=== PATIENT | female | born 1970 | race Caucasian/White ===

== ENCOUNTER → 2016-10-22 | Outpatient (CLI) | payer OTHER ==
[~2016-10-22] MED LIST: ALBUTEROL SULFAT3 M3 IH; ALBUTEROL0.09 MG/A1 IH; AMBIEN 5MG TABLE5 MG PO; AMITRIPTYLINE H10 M1 PO; ASPIRIN E.C. 8181 MG PO; AZOR 10 MG-20 M1 TAB PO; AZOR 10 MG-40 M1 TAB PO; BCP TD; BENICAR HCT 251 TAB PO; BENICAR40 MG PO; BYETTA 10M600 MCG/SY SC; BYETTA 5MC300 MCG/SY SC; BYSTOLIC10 MG PO; BYSTOLIC5 MG PO; Birth Control Pill PO; CATAPRES0.2 MG PO; CEPHALEXIN500 M1 PO; CLONIDINE0.1 MG PO; COREG 25MG25 MG/TAB PO; CYMBALTA 60MG60 MG PO; DESYREL 50MG50 MG PO; DOXAZOSIN4 MG PO; EC NAPROSYN500 MG PO; FIORICET 325 MG1 TA1 PO; FLAGYL 250250 MG/TAB PO; FLEXERIL 1010 MG/TAB PO; FLEXERIL10 MG PO; FLONASE NASAL S16 GM NS; FORTAMET500 MG PO; GABAPENTIN600 MG PO; GLUCOPHAGE PO; GLUCOPHAGE500 MG PO; GLUCOPHAGE500 MG/TAB PO; HCTZ PO; IBUPROFEN; INDERAL 20MG20 MG PO; INDERAL PO; LIPITOR 10MG10 MG PO; LIPITOR 40MG TA40 MG PO; LISINOPRIL PO; LISINOPRIL/HCTZ1 TA2 PO; LISINOPRIL1 POW; LORTAB 5/500 501 TAB PO; LORTAB 7.5/5001 TAB PO; MEPERIDINE HCL50 MG PO; METFORMIN500 MG PO; MICARDIS80 MG PO; MINOXIDIL2.5 MG PO; MOBIC15 MG PO; MOTRIN 800800 MG/TAB PO; MOTRIN800 MG PO; NAPROSYN500 MG PO; NAPROXEN500 MG PO; NORCO 325 MG-51 TAB PO; NORCO 325 MG-7.1 TAB PO; NORVASC 10MG10 MG PO; NORVASC 5MG5 MG/TAB PO; OXYCODONE15 MG PO; OXYCONTIN30 MG PO; PEPCID 20MG TAB20 MG PO; PERCOCET 325 MG1 TA2 PO; PERCOCET 5/321 UDTAB PO; PERCOCET 500 MG1 TAB PO; PHENERGAN 25 TA25 MG PO; PHENERGAN25 MG RC; PRAVASTATIN40 MG PO; PREDNISONE20 MG PO; PRILOSEC20 M1 PO; PRINZIDE 25 MG-1 TAB PO; PROTONIX 40MG T40 MG PO; PROVENTIL0.09 MG/A1 IH; ROXICODONE30 MG PO; SEPTRA DS 8001 TAB PO; SOMA 350MG350 MG/TAB PO; SOMA250 MG PO; SOMA350 MG PO; TENEX1 MG PO; TENEX2 MG PO; TRAMADOL; TRIBENZOR 10 MG1 TA1 PO; TYLENOL 325MG325 MG PO; ULTRAM; ULTRAM 50MG TAB50 MG PO; ULTRAM ER300 MG PO; ULTRAM50 MG PO; VALIUM5 MG PO; VICODIN 5/5001 UDTAB PO; XOPENEX 3 ML3 M1 IH; ZANAFLEX2 MG PO; ZESTORETIC 12.51 TA1 PO; ZITHROMAX Z PA250 MG PO; ZOFRAN4 MG PO; [UNRECOGNIZED DRUG - OTHER]; propanolol
== END ==
LOC: MC.RAD 10:34
DX: Z12.31 Encounter for screening mammogram for malignant neoplasm of breast (principal)

== ENCOUNTER 2018-01-10 13:09 | Emergency (ER) | payer OTHER ==
[~2018-01-10] VITALS: Ht 165.1 cm; Wt 97.3 kg
[2018-01-10 13:18] VITALS: BP 124/87; TEMP 98.2
[2018-01-10 14:24] VITALS: PULSE 90
[2018-01-11] MEDS ORDERED: PERCOCET 325 MG1 TA3 PO (07:00)
[2018-01-11] MEDS ORDERED: SOMA 350MG350 MG/TAB PO (07:02)
[2018-01-11] MEDS ORDERED: TRULICITY0.75 MG/0. SQ (07:02)
== END 2018-01-10 14:37 | disposition home or self-care (01) ==
LOC: COL.ER 13:09
DX: G89.29 Other chronic pain (principal); M54.5 Low back pain; M19.90 Unspecified osteoarthritis, unspecified site; Z90.89 Acquired absence of other organs; Z90.49 Acquired absence of other specified parts of digestive tract; Z98.890 Other specified postprocedural states; Z79.84 Long term (current) use of oral hypoglycemic drugs; X50.0XXA Overexertion from strenuous movement or load, initial encounter
CPT/HCPCS: J1170; J1885; J2550

== ENCOUNTER 2018-01-11 06:48 | Emergency (ER) | payer OTHER ==
[~2018-01-11] VITALS: Ht 165.1 cm; Wt 97.3 kg
[2018-01-11 06:50] VITALS: BP 125/90; TEMP 97.4
[2018-01-11] MEDS ORDERED: PERCOCET 325 MG1 TA3 PO (07:00)
[2018-01-11] MEDS ORDERED: TRULICITY0.75 MG/0. SQ (07:02)
[2018-01-11] MEDS ORDERED: SOMA 350MG350 MG/TAB PO (07:02)
[2018-01-11 07:36] VITALS: PULSE 102
== END 2018-01-11 07:41 | disposition home or self-care (01) ==
LOC: COL.ER 06:48
DX: G89.29 Other chronic pain (principal); M54.5 Low back pain; I10 Essential (primary) hypertension; X50.0XXA Overexertion from strenuous movement or load, initial encounter; Y92.89 Other specified places as the place of occurrence of the external cause
CPT/HCPCS: J1170

== ENCOUNTER 2018-02-03 20:27 | Emergency (ER) | payer OTHER ==
[~2018-02-03] VITALS: Ht 165.1 cm; Wt 97.3 kg
[~2018-02-03 20:27] MED LIST changes: +PERCOCET 325 MG1 TA3 PO; +TRULICITY0.75 MG/0. SQ
[2018-02-03 20:41] VITALS: BP 125/81; TEMP 98.7
[2018-02-03] MEDS ORDERED: HYSINGLA40 (22:36)
[2018-02-03] MEDS ORDERED: LOPRESSOR 550 MG/TAB PO (22:36)
[2018-02-03] MEDS ORDERED: ULTRAM 50MG TAB50 MG PO (22:37)
[2018-02-03] MEDS ORDERED: CYMBALTA 30MG30 MG (22:39)
[2018-02-03] MEDS ORDERED: FOLIC ACID 11 MG/TA1 PO (22:41)
[2018-02-03] MEDS ORDERED: FERRO-TIME325 MG PO (22:42)
[2018-02-03 23:15] VITALS: PULSE 88
== END 2018-02-03 23:15 | disposition home or self-care (01) ==
LOC: COL.ER 20:27
DX: G89.29 Other chronic pain (principal); M54.5 Low back pain
CPT/HCPCS: J1170; J1885

== ENCOUNTER 2018-02-04 23:49 | Emergency (ER) | payer OTHER ==
[~2018-02-04] VITALS: Ht 165.1 cm; Wt 97.3 kg
[~2018-02-04 23:49] MED LIST changes: +CYMBALTA 30MG30 MG; +FERRO-TIME325 MG PO; +FOLIC ACID 11 MG/TA1 PO; +HYSINGLA40; +LOPRESSOR 550 MG/TAB PO
[2018-02-05 00:08] VITALS: BP 122/83; TEMP 98.2
[2018-02-05 01:38] VITALS: PULSE 82
== END 2018-02-05 01:38 | disposition home or self-care (01) ==
LOC: COL.ER 23:49
DX: M54.5 Low back pain (principal); E11.9 Type 2 diabetes mellitus without complications; I10 Essential (primary) hypertension; G89.29 Other chronic pain; Z90.49 Acquired absence of other specified parts of digestive tract; Z90.710 Acquired absence of both cervix and uterus; Z88.1 Allergy status to other antibiotic agents; Z88.8 Allergy status to other drugs, medicaments and biological substances
CPT/HCPCS: J1885

== ENCOUNTER 2018-02-05 19:49 | Emergency (ER) | payer OTHER ==
[~2018-02-05] VITALS: Ht 165.1 cm; Wt 97.3 kg
[2018-02-05 19:57] VITALS: BP 143/77; PULSE 94; TEMP 98.1
== END 2018-02-05 21:50 | disposition left against medical advice (07) ==
LOC: COL.ER 19:49
DX: M54.5 Low back pain (principal)

== ENCOUNTER 2018-02-23 17:11 | Inpatient (IN) | payer OTHER ==
[2018-02-23] VITALS (22 sets, daily range): BP systolic 127; BP diastolic 63; PULSE 101; TEMP 98.7; O2SAT 93–98
[~2018-02-23] VITALS: Ht 165.1 cm; Wt 100.6 kg
[~2018-02-23 17:11] MED LIST changes: -CYMBALTA 30MG30 MG; +CYMBALTA 30MG30 MG PO
[2018-02-23 18:15] LABS: BASO # 0.1 (0.0-0.2); BASO % 0.7 % (0.0-2.0); EOS # 0.5 (0.0-0.7); EOS % 3.8 % (0-4.0); GRAN # 5.6 (1.4-6.5); GRAN % 46.7 % (42.2-75.2); HEMOGLOBIN 11.6 g/dl (12.5-16.0); LYMPH % 41.3 % (20.0-51.0); MEAN CELL VOLUME 90 fl (80.0-100.0); MEAN CORPUSCULAR HEMOGLOBIN 31 pg (27.0-31.0); MEAN CORPUSCULAR HGB CONC 34 g/dl (33.0-37.0); MEAN PLATELET VOLUME 9.2 fl (7.4-10.4); MONO # 0.9 (0.1-0.6); MONO % 7.2 % (1.7-9.3); PLATELET COUNT 337 K/mm3 (130-400); RED BLOOD COUNT 3.76 M/mm3 (4.10-5.30); REDCELL DISTRIBUTION WIDTH-CV 13.2 % (11.5-14.5)
[2018-02-23 18:16] LABS: HEMATOCRIT 33.9 % (37.0-47.0)
[2018-02-23 18:19] LABS: INR 0.9 (0.8-3.0); PROTHROMBIN TIME 9.7 SECONDS (9.7-12.8)
[2018-02-23 18:20] LABS: COLLECTION METHOD CLEAN CATCH
[2018-02-23 18:22] LABS: PARTIAL THROMBOPLASTIN TIME 34.2 SECONDS (26.0-37.0)
[2018-02-23 18:27] LABS: ALBUMIN 4.2 gm/dL (3.5-5.0); BILIRUBIN,TOTAL 0.3 mg/dL (0.0-1.0); CALCIUM 9.7 mg/dL (8.4-10.2); CREATININE, serum 0.78 mg/dL (0.52-1.25); MAGNESIUM 1.7 mg/dL (1.6-2.3); PHOSPHOROUS 3.5 mg/dL (2.5-4.5); POTASSIUM 3.3 mmol/L (3.4-5.0); TOTAL PROTEIN 7.8 gm/dL (6.4-8.2)
[2018-02-23 18:30] LABS: PH 7 (5-8); SQUAMOUS EPITHELIAL 0-2 /hpf; URINE APPEARANCE Clear; URINE BACTERIA Occasional /hpf; URINE BILIRUBIN Negative (NEGATIVE); URINE BLOOD Negative (NEGATIVE); URINE COLOR Straw; URINE GLUCOSE Negative (NEGATIVE); URINE KETONE Negative (NEGATIVE); URINE LEUKOCYTE ESTERASE Negative (NEGATIVE); URINE NITRATE Negative (NEGATIVE); URINE PROTEIN(semi-quant) Negative (NEGATIVE); URINE RBC None Seen /hpf; URINE UROBILINOGEN Negative (NEGATIVE)
[2018-02-23 21:27] LABS: CALCIUM 9.3 mg/dL (8.4-10.2); CREATININE, serum 0.73 mg/dL (0.52-1.25); POTASSIUM 3.7 mmol/L (3.4-5.0)
[2018-02-23] MEDS ORDERED: TOPROL XL 50MG50 MG PO (23:02)
[2018-02-24] VITALS (317 sets, daily range): BP systolic 115–125; BP diastolic 68–83; PULSE 87–102; TEMP 97–98.7; O2SAT 62–100
[2018-02-24 00:05] LABS: TRICYCLIC ANTIDEPRESS URINE NEGATIVE
[2018-02-24 06:05] LABS: BASO # 0.1 (0.0-0.2); BASO % 0.8 % (0.0-2.0); EOS # 0.4 (0.0-0.7); EOS % 5.7 % (0-4.0); GRAN # 3.4 (1.4-6.5); GRAN % 43.1 % (42.2-75.2); HEMOGLOBIN 10.4 g/dl (12.5-16.0); LYMPH # 3.3 (1.2-3.4); LYMPH % 42.2 % (20.0-51.0); MEAN CELL VOLUME 92 fl (80.0-100.0); MEAN CORPUSCULAR HEMOGLOBIN 31 pg (27.0-31.0); MEAN CORPUSCULAR HGB CONC 33 g/dl (33.0-37.0); MEAN PLATELET VOLUME 9.2 fl (7.4-10.4); MONO # 0.6 (0.1-0.6); MONO % 7.9 % (1.7-9.3); PLATELET COUNT 310 K/mm3 (130-400); RED BLOOD COUNT 3.41 M/mm3 (4.10-5.30); REDCELL DISTRIBUTION WIDTH-CV 13.6 % (11.5-14.5)
[2018-02-24 06:06] LABS: HEMATOCRIT 31.5 % (37.0-47.0)
[2018-02-24 06:10] LABS: CREATININE, serum 0.71 mg/dL (0.52-1.25)
[2018-02-25] VITALS (10 sets, daily range): BP systolic 100–143; BP diastolic 58–89; PULSE 82–112; TEMP 97.9–98.5
[2018-02-26 00:40] VITALS: BP 133/79; PULSE 87; TEMP 97.8
[2018-02-26 04:21] VITALS: BP 119/70; PULSE 82; TEMP 98
[2018-02-26 06:55] LABS: BASO % 0.1 % (0.0-2.0); GRAN # 12.7 (1.4-6.5); GRAN % 88.6 % (42.2-75.2); HEMOGLOBIN 10.1 g/dl (12.5-16.0); LYMPH # 1.4 (1.2-3.4); LYMPH % 9.7 % (20.0-51.0); MEAN CELL VOLUME 92 fl (80.0-100.0); MEAN CORPUSCULAR HEMOGLOBIN 31 pg (27.0-31.0); MEAN CORPUSCULAR HGB CONC 34 g/dl (33.0-37.0); MEAN PLATELET VOLUME 9.3 fl (7.4-10.4); MONO # 0.1 (0.1-0.6); MONO % 0.8 % (1.7-9.3); PLATELET COUNT 309 K/mm3 (130-400); RED BLOOD COUNT 3.25 M/mm3 (4.10-5.30); REDCELL DISTRIBUTION WIDTH-CV 13.9 % (11.5-14.5)
[2018-02-26 07:09] LABS: CALCIUM 8.8 mg/dL (8.4-10.2); CREATININE, serum 0.64 mg/dL (0.52-1.25); POTASSIUM 3.7 mmol/L (3.4-5.0)
[2018-02-26 07:57] VITALS: BP 124/65; PULSE 85; TEMP 98
[2018-02-26] MEDS ORDERED: CEPHALEXIN500 M1 PO (08:55)
[2018-02-26] MEDS ORDERED: REQUIP0.25 MG PO (08:57)
[2018-02-26] MEDS ORDERED: MOBIC15 MG PO (08:58)
[2018-02-26] MEDS ORDERED: ZESTRIL 20MG TA20 MG PO (08:58)
[2018-02-26] MEDS ORDERED: SOMA 350MG350 MG/TAB PO (08:59)
[2018-02-26] MEDS ORDERED: DECADRON 4MG TAB4 MG PO (09:00)
[2018-02-26] MEDS ORDERED: LIDODERM 5% PATC1 EA TP (09:01)
[2018-02-26] MEDS ORDERED: VITAMIND3 5000 PO (09:02)
== END 2018-02-26 10:23 | disposition home or self-care (01) | DRG 896 ==
LOC: COL.ER 17:11 → MEDICAL 19:41 → ICU 19:41 → MEDICAL 02-24 15:49
PROVIDERS: Emergency Medicine; Internal Medicine; Nurse Practitioner Family; Physician Assistant
PROC: 0JPT02Z Removal of Monitoring Device from Trunk Subcutaneous Tissue and Fascia, Open Approach (ICD-10-PCS; principal; 2018-02-25)
DX: F11.23 Opioid dependence with withdrawal (principal); G93.41 Metabolic encephalopathy; E87.1 Hypo-osmolality and hyponatremia; G25.1 Drug-induced tremor; I10 Essential (primary) hypertension; E11.9 Type 2 diabetes mellitus without complications; G25.81 Restless legs syndrome; E87.6 Hypokalemia; E83.42 Hypomagnesemia; E87.8 Other disorders of electrolyte and fluid balance, not elsewhere classified; G89.29 Other chronic pain; M70.62 Trochanteric bursitis, left hip; M70.61 Trochanteric bursitis, right hip
CPT/HCPCS: OP; 99222-AI; 99233-AI; 99239; A9585; G0378; J0690; J1200; J1650; J1815; J2060; J2250; J2405; J3010; J3475; J7030; J8540

== ENCOUNTER 2018-03-31 01:53 | Emergency (ER) | payer OTHER ==
[~2018-03-31] VITALS: Ht 165.1 cm; Wt 97.7 kg
[~2018-03-31 01:53] MED LIST changes: +DECADRON 4MG TAB4 MG PO; +LIDODERM 5% PATC1 EA TP; +REQUIP0.25 MG PO; +TOPROL XL 50MG50 MG PO; +VITAMIND3 5000 PO; +ZESTRIL 20MG TA20 MG PO
[2018-03-31 01:58] VITALS: BP 123/91; TEMP 97.6
[2018-03-31 03:25] VITALS: PULSE 95
== END 2018-03-31 03:25 | disposition home or self-care (01) ==
LOC: COL.ER 01:53
DX: M25.552 Pain in left hip (principal); M25.551 Pain in right hip; E11.9 Type 2 diabetes mellitus without complications; I10 Essential (primary) hypertension; J45.909 Unspecified asthma, uncomplicated; Z90.89 Acquired absence of other organs; Z90.49 Acquired absence of other specified parts of digestive tract; Z90.710 Acquired absence of both cervix and uterus; W06.XXXA Fall from bed, initial encounter
CPT/HCPCS: J1170

== ENCOUNTER 2018-04-13 11:25 | Emergency (ER) | payer OTHER ==
[~2018-04-13] VITALS: Ht 165.1 cm; Wt 98.6 kg
[2018-04-13 12:01] VITALS: TEMP 97.6
[2018-04-13 12:41] LABS: BASO # 0.1 (0.0-0.2); BASO % 0.8 % (0.0-2.0); EOS # 1.3 (0.0-0.7); GRAN % 41.2 % (42.2-75.2); HEMATOCRIT 34.6 % (37.0-47.0); HEMOGLOBIN 11.5 g/dl (12.5-16.0); LYMPH # 3.7 (1.2-3.4); LYMPH % 38.9 % (20.0-51.0); MEAN CELL VOLUME 93 fl (80.0-100.0); MEAN CORPUSCULAR HEMOGLOBIN 31 pg (27.0-31.0); MEAN CORPUSCULAR HGB CONC 33 g/dl (33.0-37.0); MEAN PLATELET VOLUME 8.9 fl (7.4-10.4); MONO # 0.6 (0.1-0.6); MONO % 5.9 % (1.7-9.3); PLATELET COUNT 379 K/mm3 (130-400); RED BLOOD COUNT 3.71 M/mm3 (4.10-5.30); REDCELL DISTRIBUTION WIDTH-CV 12.8 % (11.5-14.5)
[2018-04-13 12:53] LABS: ALANINE AMINOTRANSFERASE 29 U/L (9-52); ALBUMIN 4.2 gm/dL (3.5-5.0); ALKALINE PHOSPHATASE 81 U/L (50-136); ANION GAP 13 mmol/L (7-16); AST,SGOT 27 U/L (15-37); BILIRUBIN,TOTAL 0.3 mg/dL (0.0-1.0); BLOOD UREA NITROGEN 45 mg/dL (7-17); C-REACTIVE PROTEIN 1.1 mg/dL (0.0-0.9); CALCIUM 9.1 mg/dL (8.4-10.2); CARBON DIOXIDE 25 mmol/L (22-30); CHLORIDE 97 mmol/L (98-107); CREATININE, serum 1.42 mg/dL (0.52-1.25); GLUCOSE 117 mg/dL (74-106); LIPASE 52 U/L (23-300); POTASSIUM 4.2 mmol/L (3.4-5.0); SODIUM 135 mmol/L (137-145); TOTAL PROTEIN 7.7 gm/dL (6.4-8.2)
[2018-04-13 13:02] LABS: TROPONIN-I < 0.012 ng/mL (0.000-0.034)
[2018-04-13] MEDS ORDERED: AMBIEN 10MG10 MG PO (13:24)
[2018-04-13] MEDS ORDERED: ATARAX50 MG PO (13:27)
[2018-04-13 14:39] LABS: COLLECTION METHOD CLEAN CATCH
[2018-04-13 14:48] LABS: PH 5 (5-8); SQUAMOUS EPITHELIAL 0-2 /hpf; URINE APPEARANCE Clear; URINE BACTERIA None Seen /hpf; URINE BILIRUBIN Negative (NEGATIVE); URINE BLOOD Negative (NEGATIVE); URINE COLOR Yellow; URINE GLUCOSE Negative (NEGATIVE); URINE KETONE Negative (NEGATIVE); URINE LEUKOCYTE ESTERASE Negative (NEGATIVE); URINE NITRATE Negative (NEGATIVE); URINE PROTEIN(semi-quant) Negative (NEGATIVE); URINE RBC 0-2 /hpf; URINE UROBILINOGEN Negative (NEGATIVE)
[2018-04-13] MEDS ORDERED: PHENERGAN 25 TA25 MG PO (14:49)
[2018-04-13] MEDS ORDERED: ZOFRAN ODT4 MG PO (14:50)
[2018-04-13 15:00] VITALS: BP 97/65; PULSE 76
== END 2018-04-13 15:00 | disposition home or self-care (01) ==
LOC: COL.ER 11:25
PROVIDERS: Emergency Medicine
DX: E86.0 Dehydration (principal); R11.10 Vomiting, unspecified; E11.9 Type 2 diabetes mellitus without complications; I10 Essential (primary) hypertension; M54.9 Dorsalgia, unspecified; G89.29 Other chronic pain; Z90.710 Acquired absence of both cervix and uterus; Z90.49 Acquired absence of other specified parts of digestive tract; Z79.891 Long term (current) use of opiate analgesic
CPT/HCPCS: J2405; J7030

== ENCOUNTER 2018-09-01 23:02 | Emergency (ER) | payer OTHER ==
[~2018-09-01] VITALS: Ht 165.1 cm; Wt 102.3 kg
[~2018-09-01 23:02] MED LIST changes: +AMBIEN 10MG10 MG PO; +ATARAX50 MG PO; +ZOFRAN ODT4 MG PO
[2018-09-01 23:06] VITALS: TEMP 97
[2018-09-01 23:57] LABS: BASO % 0.3 % (0.0-2.0); EOS # 0.1 (0.0-0.7); EOS % 0.8 % (0-4.0); GRAN # 9.8 (1.4-6.5); GRAN % 63.3 % (42.2-75.2); HEMOGLOBIN 11.6 g/dl (12.5-16.0); LYMPH # 4.5 (1.2-3.4); MEAN CELL VOLUME 91 fl (80.0-100.0); MEAN CORPUSCULAR HEMOGLOBIN 30 pg (27.0-31.0); MEAN CORPUSCULAR HGB CONC 33 g/dl (33.0-37.0); MEAN PLATELET VOLUME 9.3 fl (7.4-10.4); MONO % 6.3 % (1.7-9.3); PLATELET COUNT 345 K/mm3 (130-400); RED BLOOD COUNT 3.83 M/mm3 (4.10-5.30); REDCELL DISTRIBUTION WIDTH-CV 13.5 % (11.5-14.5)
[2018-09-02 00:01] LABS: HEMATOCRIT 34.8 % (37.0-47.0)
[2018-09-02 00:11] LABS: ALBUMIN 4.2 gm/dL (3.5-5.0); BILIRUBIN,TOTAL 0.3 mg/dL (0.0-1.0); C-REACTIVE PROTEIN 0.9 mg/dL (0.0-0.9); CALCIUM 9.2 mg/dL (8.4-10.2); CREATININE, serum 1.2 mg/dL (0.52-1.25); POTASSIUM 4.2 mmol/L (3.4-5.0); TOTAL PROTEIN 7.7 gm/dL (6.4-8.2)
[2018-09-02 01:42] LABS: COLLECTION METHOD CLEAN CATCH
[2018-09-02 01:50] LABS: PH 6 (5-8); URINE APPEARANCE Clear; URINE BACTERIA None Seen /hpf; URINE BILIRUBIN Negative (NEGATIVE); URINE BLOOD Negative (NEGATIVE); URINE COLOR Yellow; URINE GLUCOSE Negative (NEGATIVE); URINE KETONE Negative (NEGATIVE); URINE LEUKOCYTE ESTERASE Negative (NEGATIVE); URINE NITRATE Negative (NEGATIVE); URINE PROTEIN(semi-quant) Negative (NEGATIVE); URINE RBC 0-2 /hpf; URINE UROBILINOGEN Negative (NEGATIVE)
[2018-09-02 01:58] LABS: MUCOUS Present /lpf; SQUAMOUS EPITHELIAL 0-2 /hpf
[2018-09-02 03:32] VITALS: BP 105/71; PULSE 87
== END 2018-09-02 03:37 | disposition home or self-care (01) ==
LOC: COL.ER 23:02
PROVIDERS: Nurse Practitioner
DX: R52 Pain, unspecified (principal); R53.81 Other malaise; R45.1 Restlessness and agitation; E11.9 Type 2 diabetes mellitus without complications; I10 Essential (primary) hypertension; F32.9 Major depressive disorder, single episode, unspecified; Z90.49 Acquired absence of other specified parts of digestive tract; Z90.710 Acquired absence of both cervix and uterus; Z98.890 Other specified postprocedural states
CPT/HCPCS: J1170; J1200; J1630; J2060; J7030

== ENCOUNTER 2018-09-20 21:26 | Emergency (ER) | payer OTHER ==
[~2018-09-20] VITALS: Ht 165.1 cm; Wt 100.0 kg
[2018-09-20 21:30] VITALS: TEMP 97.4
[2018-09-20 22:10] LABS: BASO % 0.4 % (0.0-2.0); EOS # 0.4 (0.0-0.7); EOS % 3.7 % (0-4.0); GRAN # 5.8 (1.4-6.5); GRAN % 59.8 % (42.2-75.2); LYMPH % 30.9 % (20.0-51.0); MEAN CELL VOLUME 93 fl (80.0-100.0); MEAN CORPUSCULAR HGB CONC 32 g/dl (33.0-37.0); MEAN PLATELET VOLUME 9.1 fl (7.4-10.4); MONO # 0.5 (0.1-0.6); MONO % 4.9 % (1.7-9.3); PLATELET COUNT 320 K/mm3 (130-400); RED BLOOD COUNT 3.27 M/mm3 (4.10-5.30); REDCELL DISTRIBUTION WIDTH-CV 13.6 % (11.5-14.5)
[2018-09-20 22:11] LABS: HEMATOCRIT 30.5 % (37.0-47.0); HEMOGLOBIN 9.8 g/dl (12.5-16.0); MEAN CORPUSCULAR HEMOGLOBIN 30 pg (27.0-31.0)
[2018-09-20 22:17] LABS: COLLECTION METHOD CLEAN CATCH
[2018-09-20 22:21] LABS: ALANINE AMINOTRANSFERASE 22 U/L (9-52); ALBUMIN 3.8 gm/dL (3.5-5.0); ALKALINE PHOSPHATASE 69 U/L (50-136); ANION GAP 9 mmol/L (7-16); AST,SGOT 31 U/L (15-37); BILIRUBIN,TOTAL 0.1 mg/dL (0.0-1.0); BLOOD UREA NITROGEN 21 mg/dL (7-17); CALCIUM 9.2 mg/dL (8.4-10.2); CARBON DIOXIDE 31 mmol/L (22-30); CHLORIDE 93 mmol/L (98-107); CREATININE, serum 1.07 mg/dL (0.52-1.25); GLUCOSE 169 mg/dL (74-106); POTASSIUM 3.6 mmol/L (3.4-5.0); SODIUM 133 mmol/L (137-145); TOTAL PROTEIN 6.9 gm/dL (6.4-8.2)
[2018-09-20 22:23] LABS: ALCOHOL(ethanol),MEDICAL < 10 mg/dL
[2018-09-20 22:34] LABS: HYALINE CAST >12 /lpf; MUCOUS Present /lpf; PH 5 (5-8); TRICYCLIC ANTIDEPRESS URINE POSITIVE; URINE APPEARANCE Clear; URINE BACTERIA Rare /hpf; URINE BILIRUBIN Negative (NEGATIVE); URINE BLOOD Negative (NEGATIVE); URINE COLOR Yellow; URINE GLUCOSE Negative (NEGATIVE); URINE KETONE Negative (NEGATIVE); URINE LEUKOCYTE ESTERASE Trace (NEGATIVE); URINE NITRATE Negative (NEGATIVE); URINE PROTEIN(semi-quant) Negative (NEGATIVE); URINE RBC 0-2 /hpf; URINE UROBILINOGEN Negative (NEGATIVE)
[2018-09-20 22:37] LABS: PROLACTIN 198.7 ng/mL (3.0-18.6)
[2018-09-20] MEDS ORDERED: PRINZIDE 25 MG-1 TAB (22:38)
[2018-09-20] MEDS ORDERED: PRINIVIL20 MG PO (23:01)
[2018-09-20] MEDS ORDERED: KEPPRA 500MG500 MG PO (23:01)
[2018-09-20 23:51] VITALS: BP 103/63; PULSE 83
== END 2018-09-20 23:53 | disposition home or self-care (01) ==
LOC: COL.ER 21:26
PROVIDERS: Emergency Medicine
DX: G40.909 Epilepsy, unspecified, not intractable, without status epilepticus (principal); E87.1 Hypo-osmolality and hyponatremia
CPT/HCPCS: J1953; J2060; J7030

== ENCOUNTER 2018-10-24 00:36 | Emergency (ER) | payer OTHER ==
[~2018-10-24] VITALS: Ht 165.1 cm; Wt 100.0 kg
[~2018-10-24 00:36] MED LIST changes: +KEPPRA 500MG500 MG PO; +PRINIVIL20 MG PO; +PRINZIDE 25 MG-1 TAB
[2018-10-24 00:42] VITALS: BP 131/61; TEMP 97.9
[2018-10-24 01:37] LABS: COLLECTION METHOD CLEAN CATCH
[2018-10-24 01:39] LABS: BASO % 0.2 % (0.0-2.0); EOS # 0.2 (0.0-0.7); EOS % 1.4 % (0-4.0); GRAN # 8.1 (1.4-6.5); GRAN % 65.2 % (42.2-75.2); LYMPH # 3.4 (1.2-3.4); LYMPH % 27.4 % (20.0-51.0); MEAN CELL VOLUME 90 fl (80.0-100.0); MEAN CORPUSCULAR HEMOGLOBIN 30 pg (27.0-31.0); MEAN CORPUSCULAR HGB CONC 34 g/dl (33.0-37.0); MEAN PLATELET VOLUME 9.5 fl (7.4-10.4); MONO # 0.7 (0.1-0.6); MONO % 5.6 % (1.7-9.3); PLATELET COUNT 316 K/mm3 (130-400); RED BLOOD COUNT 3.98 M/mm3 (4.10-5.30); REDCELL DISTRIBUTION WIDTH-CV 13.8 % (11.5-14.5)
[2018-10-24 01:41] LABS: HEMATOCRIT 35.7 % (37.0-47.0)
[2018-10-24 01:43] LABS: PH 6 (5-8); SQUAMOUS EPITHELIAL 0-2 /hpf; URINE APPEARANCE Clear; URINE BACTERIA Rare /hpf; URINE BILIRUBIN Negative (NEGATIVE); URINE BLOOD Negative (NEGATIVE); URINE COLOR Yellow; URINE GLUCOSE Negative (NEGATIVE); URINE KETONE Negative (NEGATIVE); URINE LEUKOCYTE ESTERASE Negative (NEGATIVE); URINE NITRATE Negative (NEGATIVE); URINE PROTEIN(semi-quant) Negative (NEGATIVE); URINE RBC None Seen /hpf; URINE UROBILINOGEN Negative (NEGATIVE)
[2018-10-24 01:52] LABS: ALBUMIN 4.4 gm/dL (3.5-5.0); BILIRUBIN,TOTAL 0.2 mg/dL (0.0-1.0); C-REACTIVE PROTEIN 0.6 mg/dL (0.0-0.9); CALCIUM 9.7 mg/dL (8.4-10.2); POTASSIUM 4.2 mmol/L (3.4-5.0); TOTAL PROTEIN 8.2 gm/dL (6.4-8.2)
[2018-10-24 03:00] VITALS: PULSE 81
== END 2018-10-24 03:00 | disposition home or self-care (01) ==
LOC: COL.ER 00:36
PROVIDERS: Physician Assistant
DX: M62.831 Muscle spasm of calf (principal); I10 Essential (primary) hypertension; E11.9 Type 2 diabetes mellitus without complications; K21.9 Gastro-esophageal reflux disease without esophagitis; Z90.49 Acquired absence of other specified parts of digestive tract; Z98.890 Other specified postprocedural states; Z90.710 Acquired absence of both cervix and uterus; Z79.84 Long term (current) use of oral hypoglycemic drugs
CPT/HCPCS: J1630; J2060

== ENCOUNTER 2018-11-13 23:05 | Emergency (ER) | payer OTHER ==
[~2018-11-13] VITALS: Ht 152.4 cm; Wt 104.5 kg
[2018-11-13 23:15] VITALS: BP 115/69; PULSE 90; TEMP 99.1
== END 2018-11-14 00:47 | disposition home or self-care (01) ==
LOC: COL.ER 23:05
DX: G89.29 Other chronic pain (principal); M54.5 Low back pain
CPT/HCPCS: J1170; J1630; J1885

== ENCOUNTER 2018-11-14 21:24 | Emergency (ER) | payer OTHER ==
[~2018-11-14] VITALS: Ht 165.1 cm; Wt 104.5 kg
[2018-11-14 21:35] VITALS: TEMP 98.7
[2018-11-15 00:05] LABS: BASO % 0.4 % (0.0-2.0); EOS # 0.1 (0.0-0.7); GRAN # 5.4 (1.4-6.5); GRAN % 60.1 % (42.2-75.2); HEMATOCRIT 29.4 % (37.0-47.0); HEMOGLOBIN 9.7 g/dl (12.5-16.0); LYMPH # 2.9 (1.2-3.4); LYMPH % 32.6 % (20.0-51.0); MEAN CELL VOLUME 89 fl (80.0-100.0); MEAN CORPUSCULAR HEMOGLOBIN 29 pg (27.0-31.0); MEAN CORPUSCULAR HGB CONC 33 g/dl (33.0-37.0); MEAN PLATELET VOLUME 9.2 fl (7.4-10.4); MONO # 0.5 (0.1-0.6); MONO % 5.6 % (1.7-9.3); PLATELET COUNT 370 K/mm3 (130-400); RED BLOOD COUNT 3.29 M/mm3 (4.10-5.30); REDCELL DISTRIBUTION WIDTH-CV 13.6 % (11.5-14.5)
[2018-11-15 00:19] LABS: ALBUMIN 3.9 gm/dL (3.5-5.0); BILIRUBIN,TOTAL 0.2 mg/dL (0.0-1.0); C-REACTIVE PROTEIN 0.9 mg/dL (0.0-0.9); CALCIUM 9.2 mg/dL (8.4-10.2); CREATININE, serum 1.07 mg/dL (0.52-1.25); POTASSIUM 3.8 mmol/L (3.4-5.0); TOTAL PROTEIN 7.2 gm/dL (6.4-8.2)
[2018-11-15 00:59] VITALS: BP 120/80; PULSE 71
== END 2018-11-15 01:01 | disposition home or self-care (01) ==
LOC: COL.ER 21:24
PROVIDERS: Nurse Practitioner
DX: G25.81 Restless legs syndrome (principal); E11.9 Type 2 diabetes mellitus without complications; I10 Essential (primary) hypertension; Z79.84 Long term (current) use of oral hypoglycemic drugs
CPT/HCPCS: J1170; J1630; J1885

== ENCOUNTER 2018-11-15 21:48 | Emergency (ER) | payer OTHER ==
[~2018-11-15] VITALS: Ht 165.1 cm; Wt 104.5 kg
[2018-11-15 21:51] VITALS: TEMP 97.4
[2018-11-15 22:52] LABS: BASO % 0.3 % (0.0-2.0); EOS # 0.2 (0.0-0.7); EOS % 1.7 % (0-4.0); GRAN % 62.8 % (42.2-75.2); LYMPH # 2.8 (1.2-3.4); MEAN CELL VOLUME 88 fl (80.0-100.0); MEAN CORPUSCULAR HGB CONC 33 g/dl (33.0-37.0); MEAN PLATELET VOLUME 9.4 fl (7.4-10.4); MONO # 0.6 (0.1-0.6); MONO % 5.8 % (1.7-9.3); PLATELET COUNT 376 K/mm3 (130-400); REDCELL DISTRIBUTION WIDTH-CV 13.3 % (11.5-14.5)
[2018-11-15 23:02] LABS: BILIRUBIN,TOTAL 0.2 mg/dL (0.0-1.0); CALCIUM 9.2 mg/dL (8.4-10.2); CREATININE, serum 0.89 mg/dL (0.52-1.25); POTASSIUM 4.1 mmol/L (3.4-5.0); TOTAL PROTEIN 7.5 gm/dL (6.4-8.2)
[2018-11-15 23:04] LABS: HEMATOCRIT 29.1 % (37.0-47.0); HEMOGLOBIN 9.6 g/dl (12.5-16.0); MEAN CORPUSCULAR HEMOGLOBIN 29 pg (27.0-31.0)
[2018-11-16 02:02] VITALS: BP 137/85; PULSE 91
== END 2018-11-16 02:02 | disposition home or self-care (01) ==
LOC: COL.ER 21:48
PROVIDERS: Emergency Medicine
DX: M62.838 Other muscle spasm (principal); G25.81 Restless legs syndrome; I10 Essential (primary) hypertension; G89.29 Other chronic pain; M54.9 Dorsalgia, unspecified; Z90.710 Acquired absence of both cervix and uterus
CPT/HCPCS: J1170; J1200; J1630; J2060; J7030; J7040

== ENCOUNTER → 2019-03-30 | Outpatient (CLI) | payer OTHER | LOC: COL.RAD 06:40 | DX: R11.2 Nausea with vomiting, unspecified (principal) | CPT/HCPCS: A9541 ==

== ENCOUNTER 2019-05-03 06:34 | Emergency (ER) | payer OTHER ==
[~2019-05-03] VITALS: Ht 165.1 cm; Wt 100.0 kg
[2019-05-03 07:37] LABS: COLLECTION METHOD CLEAN CATCH
[2019-05-03 07:41] LABS: BASO % 0.4 % (0.0-2.0); EOS # 0.3 (0.0-0.7); EOS % 2.9 % (0-4.0); GRAN # 6.3 (1.4-6.5); GRAN % 58.2 % (42.2-75.2); HEMOGLOBIN 11.5 g/dl (12.5-16.0); LYMPH # 3.5 (1.2-3.4); LYMPH % 32.2 % (20.0-51.0); MEAN CELL VOLUME 88 fl (80.0-100.0); MEAN CORPUSCULAR HEMOGLOBIN 29 pg (27.0-31.0); MEAN CORPUSCULAR HGB CONC 33 g/dl (33.0-37.0); MEAN PLATELET VOLUME 9.9 fl (7.4-10.4); MONO # 0.6 (0.1-0.6); MONO % 5.9 % (1.7-9.3); PLATELET COUNT 254 K/mm3 (130-400); RED BLOOD COUNT 3.97 M/mm3 (4.10-5.30); REDCELL DISTRIBUTION WIDTH-CV 14.3 % (11.5-14.5)
[2019-05-03 07:46] LABS: PH 5 (5-8); SQUAMOUS EPITHELIAL 0-2 /hpf; URINE APPEARANCE Clear; URINE BACTERIA None Seen /hpf; URINE BILIRUBIN Negative (NEGATIVE); URINE BLOOD Negative (NEGATIVE); URINE COLOR Yellow; URINE GLUCOSE Negative (NEGATIVE); URINE KETONE Negative (NEGATIVE); URINE LEUKOCYTE ESTERASE Negative (NEGATIVE); URINE NITRATE Negative (NEGATIVE); URINE PROTEIN(semi-quant) Negative (NEGATIVE); URINE RBC 0-2 /hpf; URINE UROBILINOGEN Negative (NEGATIVE)
[2019-05-03 07:51] LABS: HEMATOCRIT 35.1 % (37.0-47.0)
[2019-05-03 08:07] LABS: ALBUMIN 4.4 gm/dL (3.5-5.0); BILIRUBIN,TOTAL 0.4 mg/dL (0.0-1.0); CALCIUM 9.2 mg/dL (8.4-10.2); CREATININE, serum 0.75 (0.52-1.25); POTASSIUM 3.5 mmol/L (3.4-5.0); TOTAL PROTEIN 7.8 gm/dL (6.4-8.2)
[2019-05-03 08:52] VITALS: BP 115/79; PULSE 86; TEMP 98.2
== END 2019-05-03 09:06 | disposition home or self-care (01) ==
LOC: COL.ER 06:34
PROVIDERS: Family Medicine
DX: G25.81 Restless legs syndrome (principal)
CPT/HCPCS: J1170; J2060; J7030

== ENCOUNTER → 2019-06-22 | Outpatient (CLI) | payer OTHER | LOC: COL.VAS 12:35 | DX: M79.89 Other specified soft tissue disorders (principal); Z96.652 Presence of left artificial knee joint ==

== ENCOUNTER → 2019-09-15 | Outpatient (CLI) | payer OTHER | LOC: COL.RAD 12:02 | DX: M54.5 Low back pain (principal) ==

== ENCOUNTER 2021-02-11 03:41 | Emergency (ER) | payer BC ==
[~2021-02-11] VITALS: Ht 165.1 cm; Wt 102.3 kg
[~2021-02-11 03:41] MED LIST changes: +ZOFRAN 4MG T4 MG/TAB PO
[2021-02-11 03:48] VITALS: TEMP 97.5
[2021-02-11] MEDS ORDERED: PREDNISONE20 MG PO (04:52)
[2021-02-11 05:10] VITALS: BP 154/99; PULSE 75
== END 2021-02-11 05:10 | disposition home or self-care (01) ==
LOC: COL.ER 03:41
DX: M54.5 Low back pain (principal); E11.9 Type 2 diabetes mellitus without complications; I10 Essential (primary) hypertension; G89.29 Other chronic pain; Z90.710 Acquired absence of both cervix and uterus; Z79.891 Long term (current) use of opiate analgesic; Z79.899 Other long term (current) drug therapy
CPT/HCPCS: J2270; J3360; J7512

== ENCOUNTER 2021-06-29 21:15 | Emergency (ER) | payer BC ==
[~2021-06-29] VITALS: Ht 165.1 cm; Wt 102.3 kg
[2021-06-29 23:24] VITALS: BP 182/87; PULSE 72; TEMP 98.7
== END 2021-06-29 23:24 | disposition home or self-care (01) ==
LOC: COL.ER 21:15
DX: S83.91XA Sprain of unspecified site of right knee, initial encounter (principal); I10 Essential (primary) hypertension; E11.9 Type 2 diabetes mellitus without complications; Z79.899 Other long term (current) drug therapy; X58.XXXA Exposure to other specified factors, initial encounter
CPT/HCPCS: J2270

== ENCOUNTER 2022-01-23 12:06 | Emergency (ER) | payer BC ==
[~2022-01-23] VITALS: Ht 165.1 cm; Wt 109.1 kg
[2022-01-23 12:14] VITALS: TEMP 97.9
[2022-01-23 13:15] LABS: BASO % 0.3 % (0.0-2.0); EOS # 0.3 K/mm3 (0.0-0.7); EOS % 2.6 % (0.0-4.0); GRAN # 7.4 K/mm3 (1.4-6.5); GRAN % 63.6 % (42.2-75.2); HEMOGLOBIN 14.4 g/dl (12.5-16.0); LYMPH # 3.4 K/mm3 (1.2-3.4); LYMPH % 28.9 % (20.0-51.0); MEAN CELL VOLUME 91 fl (80.0-100.0); MEAN CORPUSCULAR HEMOGLOBIN 29 pg (27-31); MEAN CORPUSCULAR HGB CONC 32 g/dl (33.0-37.0); MEAN PLATELET VOLUME 9.6 fl (7.4-10.4); MONO # 0.5 K/mm3 (0.1-0.6); MONO % 4.2 % (1.7-9.3); PLATELET COUNT 326 K/mm3 (130-400); RED BLOOD COUNT 4.96 M/mm3 (4.10-5.30); REDCELL DISTRIBUTION WIDTH-CV 15.6 % (11.5-14.5)
[2022-01-23 13:31] LABS: ALBUMIN 4.3 gm/dL (3.5-5.0); BILIRUBIN,TOTAL 0.4 mg/dL (0.2-1.2); CALCIUM 10.3 mg/dL (8.4-10.2); CREATININE, serum 1.02 mg/dL (0.57-1.11); POTASSIUM 4.3 mmol/L (3.5-4.5); TOTAL PROTEIN 8.7 gm/dL (6.2-8.1)
[2022-01-23] MEDS ORDERED: ZOFRAN ODT4 MG PO (15:27)
[2022-01-23 15:52] VITALS: BP 155/94; PULSE 57
== END 2022-01-23 15:58 | disposition home or self-care (01) ==
LOC: COL.ER 12:06
PROVIDERS: Physician Assistant
DX: G43.809 Other migraine, not intractable, without status migrainosus (principal); Z20.822 Contact with and (suspected) exposure to COVID-19
CPT/HCPCS: J0780; J1200; J1885; J2765; J7030

== ENCOUNTER 2022-05-10 07:19 | Day surgery (SDC) | payer BC ==
[~2022-05-10] VITALS: Ht 165.1 cm; Wt 111.7 kg
[2022-05-10] MEDS ORDERED: APRESOLINE 25MG25 MG PO (08:04)
[2022-05-10] MEDS ORDERED: CRESTOR 10MG10 MG PO (08:05)
[2022-05-10] MEDS ORDERED: JARDIANCE25 PO (08:05)
[2022-05-10] MEDS ORDERED: TOPROL XL100 MG PO (08:06)
[2022-05-10] MEDS ORDERED: SEROQUEL 1100 MG/TAB PO (08:06)
[2022-05-10] MEDS ORDERED: CARTIA XT120 MG PO (08:06)
[2022-05-10] MEDS ORDERED: XTAMPZA ER13.5 MG PO (08:07)
[2022-05-10] MEDS ORDERED: PERCOCET 325 MG1 TAB PO (08:08)
--- NOTE | 2022-05-10 08:08 | NUR ---
0750 - DR patel wrote consent for procedure; order sheet completed for [facility], on chart.
[2022-05-10 08:35] VITALS: BP 142/90; PULSE 77; TEMP 98.2
--- NOTE | 2022-05-10 08:38 | NUR ---
0745 - 52 Year old natural female admitted [place] [facility] [facility] via ambulation; height and weight obtained. Vitals obtained; medications and allergies reviewed w/ PT. PT changed into a clean gown; L foot was marked by , who filled out the consent to be reviewed w/ PT. Procedure verified w/ PT, who verbalized understanding of the procedure and signed. Physical assessment completed. Warm blankets provided. IV started in R hand x1 attempt w/ 20G; IVF scanned and are infusing without difficulty and PO meds administered. PT oriented to room and call griffin, within reach. Free glasses case provided and remains present. PT is good historian for health history. x1 non-slip sock is on; side rails x2. Blood sugar obtained from IV site prior to fluids.
[2022-05-10 09:45] VITALS: BP 137/79; PULSE 69; TEMP 96.9
[2022-05-10 10:00] VITALS: BP 138/84; PULSE 65
--- NOTE | 2022-05-10 10:04 | NUR ---
0945 - PT arrives from procedure alert and oriented; monitors applied and vitals obtained. PT denies current pain/nausea. remains present. L foot in secured in shoe w/ dresssings underneath, present clean and dry. Verbal room report obatined. PT assisted w/ repositioning in bed. Side rails x2, call griffin within reach. Snack and drink provided per request, to as well. Will monitor per intervals. 1000 - VSS. PT continues to deny pain/nasuea; no vomiting. Call griffin remains within reach if needed.
[2022-05-10 10:15] VITALS: BP 139/85; PULSE 64
--- NOTE | 2022-05-10 10:26 | NUR ---
0950 - was asked to put in orders for procedure; verbalized understanding.
[2022-05-10 10:30] VITALS: BP 141/90; PULSE 68
--- NOTE | 2022-05-10 11:07 | NUR ---
1015 - VSS. PT has finished snack and drink; expressed desire to be discharged. Call griffin remains within reach if needed. Denies nausea/pain. 1030 - VSS. Call griffin remains within reach. 1045 - IV discontinued. Catheter tip intact. Pressure bandage applied; no redness or swelling noted. DC instructions and educational material reviewed w/ PT who verbalized understanding and signed the related paperwork. Questions answered to PT satisfaction. PT refused RN assistance changing into personal belongings. remains present, call griffin within reach. 1100 - PT dismissed from [facility] via wheelchair by a student RN. Per report: PT has DC packet and personal belongings; transferred into the care of her , who is driving private car.
== END 2022-05-10 11:10 | disposition home or self-care (01) ==
LOC: SDCO 07:19
DX: M72.2 Plantar fascial fibromatosis (principal); E11.9 Type 2 diabetes mellitus without complications; I10 Essential (primary) hypertension; I47.1 Supraventricular tachycardia; Z79.84 Long term (current) use of oral hypoglycemic drugs; Z79.899 Other long term (current) drug therapy
CPT/HCPCS: J0690; J2704; J3010; J7120

== ENCOUNTER 2022-07-05 21:58 | Emergency (ER) | payer BC ==
[~2022-07-05] VITALS: Ht 165.1 cm; Wt 102.3 kg
[~2022-07-05 21:58] MED LIST changes: +APRESOLINE 25MG25 MG PO; +CARTIA XT120 MG PO; +CRESTOR 10MG10 MG PO; +JARDIANCE25 PO; +PERCOCET 325 MG1 TAB PO; +SEROQUEL 1100 MG/TAB PO; +TOPROL XL100 MG PO; +XTAMPZA ER13.5 MG PO
[2022-07-05 22:06] VITALS: TEMP 97.4
[2022-07-05 22:52] LABS: BASO # 0.1 K/mm3 (0.0-0.2); BASO % 0.5 % (0.0-2.0); EOS # 0.4 K/mm3 (0.0-0.7); GRAN # 6.1 K/mm3 (1.4-6.5); GRAN % 57.7 % (42.2-75.2); HEMATOCRIT 40.5 % (37.0-47.0); HEMOGLOBIN 13.3 g/dl (12.5-16.0); LYMPH # 3.3 K/mm3 (1.2-3.4); LYMPH % 31.7 % (20.0-51.0); MEAN CELL VOLUME 91 fl (80.0-100.0); MEAN CORPUSCULAR HEMOGLOBIN 30 pg (27-31); MEAN CORPUSCULAR HGB CONC 33 g/dl (33.0-37.0); MONO # 0.6 K/mm3 (0.1-0.6); MONO % 5.8 % (1.7-9.3); PLATELET COUNT 260 K/mm3 (130-400); RED BLOOD COUNT 4.47 M/mm3 (4.10-5.30); REDCELL DISTRIBUTION WIDTH-CV 13.4 % (11.5-14.5)
[2022-07-05 23:04] LABS: INR 0.9 (0.8-3.0); PROTHROMBIN TIME 10.1 SECONDS (9.7-12.8)
[2022-07-05 23:07] LABS: PARTIAL THROMBOPLASTIN TIME 34.4 SECONDS (26.0-37.0)
[2022-07-05 23:13] LABS: ALANINE AMINOTRANSFERASE 33 U/L (0-55); ALBUMIN 3.8 gm/dL (3.5-5.0); ALKALINE PHOSPHATASE 80 U/L (40-150); ANION GAP 12 mmol/L (7-16); AST,SGOT 25 U/L (5-34); BILIRUBIN,TOTAL 0.2 mg/dL (0.2-1.2); BLOOD UREA NITROGEN 15 mg/dL (10-20); CARBON DIOXIDE 22 mmol/L (22-29); CHLORIDE 107 mmol/L (98-107); CREATININE, serum 0.97 mg/dL (0.57-1.11); GLUCOSE 138 mg/dL (70-99); POTASSIUM 3.5 mmol/L (3.5-4.5); SODIUM 141 mmol/L (136-145); TOTAL PROTEIN 7.7 gm/dL (6.2-8.1)
[2022-07-05 23:20] LABS: TROPONIN-I < 0.010 ng/mL (0.00-0.033)
[2022-07-06 01:59] VITALS: BP 125/106; PULSE 69
== END 2022-07-06 01:59 | disposition home or self-care (01) ==
LOC: COL.ER 21:58
PROVIDERS: Family Medicine
DX: F41.0 Panic disorder [episodic paroxysmal anxiety] (principal)
CPT/HCPCS: J1170; J1790; J2060; J3360